=== PATIENT | female | born 1965 | race Hispanic/Latino ===

== ENCOUNTER 2019-03-10 14:54 | Emergency (ER) | payer OTHER ==
--- NOTE | 2019-03-10 16:00 | Emergency Department Report ---
Blank Doc - Documentation Documentation: 54-year-old female that presents with right elbow pain. This initial assessment/diagnostic orders/clinical plan/treatment(s) is/are subject to change based on patient's health status, clinical progression and re- assessment by fellow clinical providers in the ED. Further treatment and workup at subsequent clinical providers discretion. Patient/guardians urged not to elope from the ED as their condition may be serious if not clinically assessed and managed. Initial orders include: 1- Patient sent to [facility] for further evaluation and treatment 2- xrays
--- NOTE | 2019-03-10 16:40 | XRay Report ---
RIGHT ELBOW 3 VIEWS INDICATION / CLINICAL INFORMATION: Right elbow pain and swelling for 5 days. No known injury. COMPARISON: None available. FINDINGS: BONES and JOINT(S): No acute fracture or subluxation. No significant arthritis. SOFT TISSUES: Edema is seen medially and posteriorly along the elbow, especially along the olecranon bursa. ADDITIONAL FINDINGS: None. IMPRESSION: Findings consistent with right olecranon bursitis. Signer Name: Bandar Murray MD Signed: 03/10/2019 4:36 PM Workstation Name: [id number]
[2019-03-10] MEDS: LIDOCAINE (2%) 20 MG/1 ML VIAL 20 ML MDV INFILTRATI STA ×2 (19:52→19:53)
[2019-03-10] MEDS ORDERED: oxyCODONE /ACETAMINOPHEN 5-325MG TAB PO STA (20:31)
[2019-03-10] MEDS ORDERED: predniSONE 50 MG TAB PO STA (20:58)
--- NOTE | 2019-03-10 21:05 | Emergency Department Report ---
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 She noticed swelling to the elbow about 2-3 days ago and the pain continued to progress and she came to the emergency department for further evaluation and treatment options) Severity: moderate Symptoms: Yes Pain with Movement, Yes Swelling, No Deformity, No Limited Range of Movement, No Numbness, No Weakness, No Bruising/Ecchymosis, No Laceration or Abrasion ED Review of Systems ROS: Stated complaint: RT ELBOW/PAIN/SWELLING Other details as noted in HPI Comment: All other systems reviewed and negative ED Past Medical Hx - Past Medical History Previous Medical History?: No - Surgical History Past Surgical History?: Yes Additional Surgical History: hysterectomy, bilateral knee surgery - Social History Smoking Status: Current Every Day Smoker Substance Use Type: None - Medications Home Medications: Home Medications Medication Instructions Recorded Confirmed Last Taken Type traMADol [Ultram] 50 mg PO Q4HR PRN #14 tablet 02/03/13 Unknown Rx Fluticasone [Flonase] 1 spray NS QDAY #1 bottle 11/19/15 Unknown Rx Loratadine/Pseudoephedrine 1 tab PO Q12H #20 tablet 11/19/15 Unknown Rx [Claritin-D 12HR] predniSONE [Deltasone] 50 mg PO QDAY #5 tab 03/10/19 Unknown Rx traMADol [Ultram] 50 mg PO Q6HR PRN #20 tablet 03/10/19 Unknown Rx Upper Extremity Exam - Exam General: Vital signs noted. No distress. Alert and acting appropriately. Head and Torso: No HEENT Abnormality, No Neck Tenderness, No Chest/Lungs Abnormality, No Abdominal Tenderness, No Back Tenderness Shoulder Exam: Yes Normal Range of Motion in Shoulder, No Shoulder Tenderness, No Clavicle Tenderness, No Shoulder Deformity, No AC Joint Tenderness Arm Exam: No Arm/Humerus Tenderness, No Arm Deformity Elbow: Yes Elbow Tenderness (effusion to the olecranon process region. Pulses 2+ no cellulitis), Yes Normal Range of Motion in Elbow, No Elbow Deformity Forearm: No Forearm Tenderness, No Forearm Deformity, No Pain with Pronation, No Pain with Supination Wrist: Yes Normal ROM in Wrist, No Wrist Tenderness, No Wrist Deformity, No Snuffbox Tenderness, No Pain with Axial Thumb Compression Hand: Yes Normal ROM in Digit(s), No Hand Tenderness, No Hand Deformity, No Digit Tenderness, No Digit(s) Deformity, No Tendon Dysfunction CMS Exam: No Broken Skin, No Normal Distal Pulses, No Normal Capillary Refill, No Normal Distal Sensation ED Course Vital Signs 03/10/19 03/10/19 15:59 20:39 Temperature 98.4 F Pulse Rate 71 Respiratory 16 20 Rate Blood Pressure 113/77 O2 Sat by Pulse 98 Oximetry - Joint Aspiration/Injection Consent Obtained: verbal consent Time Out Performed: Yes Side of Body: right Joint Aspirated: elbow Local Anesthesia Used: Lidocaine 1% Needle Size Used: 18G Syringe Size Used: 10cc Fluid Obtained: clear (yellowness clear fluid evacuated) Total Fluid Obtained (mls): 4 Patient Tolerated Procedure: well Complications: none ED Medical Decision Making - Radiology Data Radiology results: report reviewed The x-ray shows olecranon bursitis - Medical Decision Making 51-year-old female presents emergency department with febrile pain. X-ray showed no fracture or bone spur was was consistent with febrile bursitis. The bursa was aspirated. The wound was dressed IN a sling for comfort and advised to minimize her postprandial and lifting activity over the next the next week and to wear the special elbow brace patient instructed to follow up with orthopedic important has has been expressed. This is to return to emergency department should she feel her condition is worsening R Ion at that time expresses to call the ED if she is unsure of what to do Critical care attestation.: If time is entered above; I have spent that time in minutes in the direct care of this critically ill patient, excluding procedure time. ED Disposition Clinical Impression: Olecranon bursitis Disposition: DC- TO HOME OR SELFCARE Is pt being admited?: No Does the pt Need Aspirin: No Condition: Stable Instructions: Elbow Bursitis (ED) Additional Instructions: Patient to follow with orthopedic doctor as we discussed. You can return to emergency department. Her condition is worsening. Please follow emergency department if you aren't sure what to do Prescriptions: predniSONE [Deltasone] 50 mg PO QDAY #5 tab traMADol [Ultram] 50 mg PO Q6HR PRN #20 tablet PRN Reason: Pain Referrals: LEIGH RITTER MD [Staff Physician] - 3-5 Days
[2019-03-10 21:26] VITALS: BP 135/63
== END 2019-03-10 21:25 | disposition home or self-care (01) ==
LOC: ED 14:54
DX: M70.21 Olecranon bursitis, right elbow (principal); F17.200 Nicotine dependence, unspecified, uncomplicated; Z90.710 Acquired absence of both cervix and uterus; Z98.890 Other specified postprocedural states; Z79.899 Other long term (current) drug therapy; Z88.8 Allergy status to other drugs, medicaments and biological substances
CPT/HCPCS: 20605; 73080; 99283; J7512

== ENCOUNTER 2019-12-22 15:18 | Emergency (ER) | payer OTHER ==
[2019-12-22 16:26] VITALS: BP 141/86
[2019-12-22 16:56] LABS: Basophils # (Auto) 0.1 K/mm3 (0.0-0.1); Basophils % (Auto) 0.7 % (0.0-1.8); Eosinophils # (Auto) 0.3 K/mm3 (0.0-0.4); Eosinophils % (Auto) 3.8 % (0.0-4.3); Hematocrit 39.4 % (30.3-42.9); Hemoglobin 13.5 gm/dl (10.1-14.3); Lymphocytes # (Auto) 2.1 K/mm3 (1.2-5.4); Lymphocytes % (Auto) 27.5 % (13.4-35.0); Mean Corpuscular HGB Conc 34 % (30-34); Mean Corpuscular Volume 98 fl (79-97); Monocytes # (Auto) 0.5 K/mm3 (0.0-0.8); Monocytes % (Auto) 6.4 % (0.0-7.3); Platelet Count 179 K/mm3 (140-440); Red Blood Count 4.03 M/mm3 (3.65-5.03); Red Cell Distribution Width 12.7 % (13.2-15.2)
--- NOTE | 2019-12-22 17:11 | XRay Report ---
CHEST 2 VIEWS INDICATION / CLINICAL INFORMATION: palpitations. COMPARISON: 11/29/2011 FINDINGS: SUPPORT DEVICES: None. HEART / MEDIASTINUM: No significant abnormality. LUNGS / PLEURA: No significant pulmonary or pleural abnormality. No pneumothorax. ADDITIONAL FINDINGS: No significant additional findings. IMPRESSION: 1. No acute findings. Signer Name: Ej Lam MD Signed: 12/22/2019 5:07 PM Workstation Name: [id number]
[2019-12-22 17:12] LABS: Blood Urea Nitrogen 16 mg/dL (7-17); Calcium 9.6 mg/dL (8.4-10.2); Hemolysis Index 19
[2019-12-22 17:20] LABS: BUN/Creatinine Ratio 23
--- NOTE | 2019-12-22 17:50 | Emergency Department Report ---
ED Palpitations HPI - General Chief Complaint: Chest Pain Stated Complaint: BP HIGH Time Seen by Provider: 12/22/19 15:54 Source: patient Mode of arrival: Ambulatory Limitations: No Limitations - History of Present Illness Initial Comments: 54-year-old female presents to ED with complaint of elevated blood pressure, palpitations x5 months. Patient states her blood pressure is normally 120/70. However, over the last 5 months, patient states her blood pressure has been running 140s over 80s to 90s. Patient states she is unable to see her PCP, states her co-pay is too high. Patient not previously on blood pressure medication. She reports some associated palpitations whenever she starts moving around. She reports some mild chest pain occasionally, however none today. MD Complaint: "heart racing" -: month(s) (5) Context: occured during exertion Associated Symptoms: chest pain. denies: shortness of breath, nausea/vomiting - Related Data Previous Rx's Medication Instructions Recorded Last Taken Type traMADoL [Ultram] 50 mg PO Q4HR PRN #14 tablet 02/03/13 Unknown Rx Fluticasone [Flonase] 1 spray NS QDAY #1 bottle 11/19/15 Unknown Rx Loratadine/Pseudoephedrine 1 tab PO Q12H #20 tablet 11/19/15 Unknown Rx [Claritin-D 12HR] predniSONE [Deltasone] 50 mg PO QDAY #5 tab 03/10/19 Unknown Rx traMADoL [Ultram] 50 mg PO Q6HR PRN #20 tablet 03/10/19 Unknown Rx Allergies Allergy/AdvReac Type Severity Reaction Status Date / Time cephalexin monohydrate Allergy Rash Verified 02/03/13 11:24 [From Keflex] ED Review of Systems ROS: Stated complaint: BP HIGH Other details as noted in HPI Comment: All other systems reviewed and negative Respiratory: denies: shortness of breath Cardiovascular: chest pain, palpitations Gastrointestinal: denies: nausea, vomiting Musculoskeletal: other (Denies leg pain or swelling) ED Past Medical Hx - Past Medical History Previous Medical History?: Yes Additional medical history: Irregular heartbeat - Surgical History Past Surgical History?: Yes Additional Surgical History: hysterectomy, bilateral knee surgery - Social History Smoking Status: Current Every Day Smoker Substance Use Type: None - Medications Home Medications: Home Medications Medication Instructions Recorded Confirmed Last Taken Type traMADoL [Ultram] 50 mg PO Q4HR PRN #14 tablet 02/03/13 Unknown Rx Fluticasone [Flonase] 1 spray NS QDAY #1 bottle 11/19/15 Unknown Rx Loratadine/Pseudoephedrine 1 tab PO Q12H #20 tablet 11/19/15 Unknown Rx [Claritin-D 12HR] predniSONE [Deltasone] 50 mg PO QDAY #5 tab 03/10/19 Unknown Rx traMADoL [Ultram] 50 mg PO Q6HR PRN #20 tablet 03/10/19 Unknown Rx ED Physical Exam - General Limitations: No Limitations General appearance: alert, in no apparent distress - Head Head exam: Present: atraumatic, normocephalic - Eye Eye exam: Present: normal appearance, EOMI - ENT ENT exam: Present: mucous membranes moist - Neck Neck exam: Present: normal inspection - Respiratory Respiratory exam: Present: normal lung sounds bilaterally. Absent: respiratory distress - Cardiovascular Cardiovascular Exam: Present: regular rate, normal rhythm - GI/Abdominal GI/Abdominal exam: Present: soft. Absent: distended, tenderness - Extremities Exam Extremities exam: Present: normal inspection. Absent: pedal edema, calf tenderness - Neurological Exam Neurological exam: Present: alert, oriented X3 - Psychiatric Psychiatric exam: Present: normal affect, normal mood - Skin Skin exam: Present: warm, dry, intact, normal color ED Course Vital Signs 12/22/19 12/22/19 15:27 16:16 Temperature 98.8 F 98.2 F Pulse Rate 84 82 Respiratory 18 17 Rate Blood Pressure 149/98 Blood Pressure 141/86 [Left] O2 Sat by Pulse 98 Oximetry ED Medical Decision Making - Lab Data Result diagrams: 12/22/19 16:21 12/22/19 16:21 - EKG Data -: EKG Interpreted by Nv EKG shows normal: sinus rhythm, axis, intervals, QRS complexes, ST-T waves Rate: normal - EKG Data Interpretation: no acute changes, nonspecific ST-T wave dorothy - Radiology Data Radiology results: report reviewed, image reviewed - Medical Decision Making 54-year-old female with mildly elevated blood pressure for the last 5 months presents to ED for evaluation. She also reports associated palpitations, mild chest pain, headache over the last 5 months as well. Blood pressure is 141/86. Chest x-ray is negative. Labs are unremarkable. EKG shows some mild ST depressions diffusely. Troponin is negative. Outpatient follow-up advised. Return precautions given. - Differential Diagnosis Arrhythmia, ACS, hypertensive emergency Critical care attestation.: If time is entered above; I have spent that time in minutes in the direct care of this critically ill patient, excluding procedure time. ED Disposition Clinical Impression: Mild hypertension, Palpitations Disposition: DC-01 TO HOME OR SELFCARE Is pt being admited?: No Condition: Stable Instructions: Palpitations (ED), Hypertension (ED) Referrals: RAYSA TITUS MD [Primary Care Provider] - 3-5 Days OSEAS HORTA MD [Staff Physician] - 3-5 Days [facility] [Provider Group] - 3-5 Days [facility] [Outside] - 3-5 Days Time of Disposition: 17:50
== END 2019-12-22 17:59 | disposition home or self-care (01) ==
LOC: ED 15:18
DX: I10 Essential (primary) hypertension (principal); R00.2 Palpitations; F17.200 Nicotine dependence, unspecified, uncomplicated; Z98.890 Other specified postprocedural states; Z90.710 Acquired absence of both cervix and uterus; Z79.899 Other long term (current) drug therapy; Z88.6 Allergy status to analgesic agent
CPT/HCPCS: 36415; 71046; 80048; 84484; 85025; 93005; 99283

== ENCOUNTER 2020-04-25 16:35 | Emergency (ER) | payer OTHER ==
[2020-04-25 17:15] VITALS: BP 125/70
== END 2020-04-26 01:31 ==
LOC: ED 16:35
DX: K59.00 Constipation, unspecified (principal); Z53.21 Procedure and treatment not carried out due to patient leaving prior to being seen by health care provider

== ENCOUNTER 2020-05-01 08:44 | Emergency (ER) | payer OTHER ==
--- NOTE | 2020-05-01 09:03 | Event Note ---
ED Screening Note Date of service: 05/01/20 Time: 09:02 ED Screening Note: Patient presents with complaints of constipation Patient reports she was constipated for 1 week and took laxatives and enemas and then had diarrhea for 1 to 2 days She states she has now been constipated for 2 days Reports history of IBS States with the diarrhea she had blood in her stools No abdominal pain This initial assessment/diagnostic orders/clinical plan/treatment(s) is/are subject to change based on patients health status, clinical progression and re- assessment by fellow clinical providers in the ED. Further treatment and workup at subsequent clinical providers discretion. Patient/guardian urged not to elope from the ED as their condition may be serious if not clinically assessed and managed. Initial orders include: Labs X-ray
[2020-05-01 09:36] LABS: Basophils % (Auto) 0.6 % (0.0-1.8); Eosinophils # (Auto) 0.2 K/mm3 (0.0-0.4); Eosinophils % (Auto) 4.2 % (0.0-4.3); Hematocrit 39.4 % (30.3-42.9); Hemoglobin 13.4 gm/dl (10.1-14.3); Lymphocytes # (Auto) 1.7 K/mm3 (1.2-5.4); Mean Corpuscular HGB Conc 34 % (30-34); Mean Corpuscular Volume 94 fl (79-97); Monocytes # (Auto) 0.4 K/mm3 (0.0-0.8); Monocytes % (Auto) 7.3 % (0.0-7.3); Platelet Count 194 K/mm3 (140-440); Red Blood Count 4.17 M/mm3 (3.65-5.03); Red Cell Distribution Width 12.8 % (13.2-15.2)
--- NOTE | 2020-05-01 09:38 | XRay Report ---
ABDOMEN SUPINE AND ERECT INDICATION / CLINICAL INFORMATION: constipation. COMPARISON: None available. FINDINGS: Bowel gas pattern is nonspecific, not indicative of obstruction. Fairly dense appearing fecal materia l is demonstrated in the rectum and left colon, consistent with the suspected diagnosis of constipati on. Signer Name: Corona Doyle MD Signed: 05/01/2020 9:34 AM Workstation Name: [id number]
[2020-05-01 09:54] LABS: INR 0.97 (0.87-1.13)
[2020-05-01 09:55] LABS: Partial Thromboplastin Time 26.9 Sec. (24.2-36.6)
[2020-05-01 09:59] LABS: Alanine Aminotransferase 14 units/L (7-56); Albumin 4.3 g/dL (3.9-5); BUN/Creatinine Ratio 18; Blood Urea Nitrogen 11 mg/dL (7-17); Calcium 9.4 mg/dL (8.4-10.2); Hemolysis Index 5
--- NOTE | 2020-05-01 11:01 | Emergency Department Report ---
ED General Adult HPI - General Chief complaint: Abdominal Pain Stated complaint: CONSTIPATED Time Seen by Provider: 05/01/20 08:51 Source: patient Mode of arrival: Ambulatory Limitations: No Limitations - History of Present Illness Initial comments: Patient is a 55-year-old female with complaint of constipation. Patient states she has had some nausea and vomiting over the past week but denies any abdominal pain. She went to an urgent care where she was tested for COVID-19. Her test was negative. Patient states that she used multiple laxatives to improve her symptoms after which she developed diarrhea. She states that she now has constipation again. She states she has not had a bowel movement since Sunday. Patient does state that she usually only has bowel movements 2-3 times a week. She does note that she has stopped drinking sodas and is trying to increase her water and apple juice intake. Patient denies history of colon cancer in herself or in any family members however her mother has a history of ovarian cancer. She noticed some blood in her stool after she attempted to digitally remove stool from her rectum. She also noted blood from her stool once before a very large bowel movement that she had to strain to pass. -: days(s) - Related Data Previous Rx's Medication Instructions Recorded Last Taken Type traMADoL [Ultram] 50 mg PO Q4HR PRN #14 tablet 02/03/13 Unknown Rx Fluticasone [Flonase] 1 spray NS QDAY #1 bottle 11/19/15 Unknown Rx Loratadine/Pseudoephedrine 1 tab PO Q12H #20 tablet 11/19/15 Unknown Rx [Claritin-D 12HR] predniSONE [Deltasone] 50 mg PO QDAY #5 tab 03/10/19 Unknown Rx traMADoL [Ultram] 50 mg PO Q6HR PRN #20 tablet 03/10/19 Unknown Rx polyethylene glycoL 3350 [Miralax 17 gm PO BID #20 packet 05/01/20 Unknown Rx 3350] Allergies Allergy/AdvReac Type Severity Reaction Status Date / Time cephalexin monohydrate Allergy Rash Verified 02/03/13 11:24 [From Keflex] ED Review of Systems ROS: Stated complaint: CONSTIPATED Other details as noted in HPI Constitutional: denies: chills, fever ENT: denies: throat pain Cardiovascular: denies: chest pain Endocrine: denies: no symptoms reported Gastrointestinal: nausea, vomiting, diarrhea, constipation Genitourinary: as per HPI. denies: dysuria Musculoskeletal: denies: back pain Skin: denies: rash Neurological: denies: headache Psychiatric: denies: anxiety, depression Hematological/Lymphatic: denies: easy bleeding ED Past Medical Hx - Past Medical History Previous Medical History?: No Additional medical history: Irregular heartbeat - Surgical History Past Surgical History?: Yes Additional Surgical History: hysterectomy, bilateral knee surgery - Social History Smoking Status: Current Every Day Smoker Substance Use Type: None - Medications Home Medications: Home Medications Medication Instructions Recorded Confirmed Last Taken Type traMADoL [Ultram] 50 mg PO Q4HR PRN #14 tablet 02/03/13 Unknown Rx Fluticasone [Flonase] 1 spray NS QDAY #1 bottle 11/19/15 Unknown Rx Loratadine/Pseudoephedrine 1 tab PO Q12H #20 tablet 11/19/15 Unknown Rx [Claritin-D 12HR] predniSONE [Deltasone] 50 mg PO QDAY #5 tab 03/10/19 Unknown Rx traMADoL [Ultram] 50 mg PO Q6HR PRN #20 tablet 03/10/19 Unknown Rx polyethylene glycoL 3350 [Miralax 17 gm PO BID #20 packet 05/01/20 Unknown Rx 3350] ED Physical Exam - General Limitations: No Limitations General appearance: alert, in no apparent distress - Head Head exam: Present: atraumatic, normocephalic - Eye Eye exam: Present: normal appearance Pupils: Present: normal accommodation - ENT ENT exam: Present: normal exam - Neck Neck exam: Present: normal inspection - Respiratory Respiratory exam: Present: normal lung sounds bilaterally. Absent: respiratory distress - Cardiovascular Cardiovascular Exam: Present: regular rate, normal rhythm, normal heart sounds - GI/Abdominal GI/Abdominal exam: Present: soft. Absent: distended, tenderness - Rectal Rectal exam: Present: heme (+) stool, other (There are fissures noted). Absent: hemorrhoids - Extremities Exam Extremities exam: Present: normal inspection - Back Exam Back exam: Present: normal inspection - Neurological Exam Neurological exam: Present: alert, oriented X3 - Psychiatric Psychiatric exam: Present: normal affect - Skin Skin exam: Present: warm, dry, intact ED Course Vital Signs 05/01/20 05/01/20 08:50 09:05 Temperature 98.0 F 98.6 F Pulse Rate 77 91 H Respiratory 20 16 Rate Blood Pressure 118/83 Blood Pressure 118/83 [Right] O2 Sat by Pulse 100 100 Oximetry ED Medical Decision Making - Lab Data Result diagrams: 05/01/20 09:04 05/01/20 09:04 - Medical Decision Making Patient is a 55-year-old female who presents to the emergency department with complaints of constipation for the past 1 week. She states she has used laxatives which resulted in diarrhea but now states that she has developed constipation again. She states she had diarrhea on Sunday. She recently t ested for Covid and was negative. She also denies any abdominal pain and any recent vomiting. Differential for patient includes constipation, colon cancer or mass, ovarian pathology. At this time patient does not have any abdominal pain. Her abdomen is soft nontender. On rectal exam she does have Hemoccult blood but there are fissures present and patient does report that she recently digitally manipulated her rectum in order to have a bowel movement. Her hemoglobin is normal, she is not anemic. At this time I do not think we can rule out colonic abnormality however she is not currently obstructed. I discussed CT scan with patient however we agreed that the most important thing that she needs is a colonoscopy with GI. Patient is instructed to call to follow-up with GI in April. She is instructed to return to the emergency department if her symptoms worsen or if she is unable to have a bowel movement with the MiraLAX treatment. I have also discussed with patient that she should undergo additional cancer screenings with her digital account coordinator for both cervical and ovarian cancer given her family history of ovarian cancer. Patient states that she does have insurance and she is willing to follow-up with the appropriate primary care and subspecialties. Critical care attestation.: If time is entered above; I have spent that time in minutes in the direct care of this critically ill patient, excluding procedure time. ED Disposition Clinical Impression: Constipation Disposition: DC-01 TO HOME OR SELFCARE Is pt being admited?: No Does the pt Need Aspirin: No Condition: Stable Instructions: Abdominal Pain (ED), Constipation, Adult, Anal Fissure, Adult Prescriptions: polyethylene glycoL 3350 [Miralax 3350] 17 gm PO BID #20 packet Referrals: DANITA STONE MD [Primary Care Provider] - 3-5 Days MARGE UGALDE MD [Referring] - 3-5 Days DAYANA UGALDE MD [Staff Physician] - 3-5 Days RHODA NEWTON MD [Staff Physician] - 3-5 Days DALE SINGLETON MD [Staff Physician] - 3-5 Days JOSE JUAN CORTES MD [Staff Physician] - 3-5 Days DAVID CHARLES MD [Staff Physician] - 3-5 Days
[2020-05-01 11:41] VITALS: BP 173/104
== END 2020-05-01 11:42 | disposition home or self-care (01) ==
LOC: ED 08:44
DX: K59.00 Constipation, unspecified (principal); R11.2 Nausea with vomiting, unspecified; Z90.710 Acquired absence of both cervix and uterus; Z98.890 Other specified postprocedural states; F17.200 Nicotine dependence, unspecified, uncomplicated; Z79.899 Other long term (current) drug therapy; Z88.8 Allergy status to other drugs, medicaments and biological substances
CPT/HCPCS: 36415; 74019; 80053; 85025; 85610; 85730